=== PATIENT | male | born 1980 | race Caucasian/White ===

== ENCOUNTER 2018-11-23 14:10 | Emergency (ER) | payer SELFPAY ==
[2018-11-23 14:26] VITALS: BP 144/95
== END 2018-11-23 14:45 | disposition left against medical advice (07) ==
LOC: ER 14:10
DX: Z53.21 Procedure and treatment not carried out due to patient leaving prior to being seen by health care provider (principal)

== ENCOUNTER 2019-02-02 11:49 | Emergency (ER) | payer OTHER ==
[2019-02-02 11:54] VITALS: BP 178/103
--- NOTE | 2019-02-02 12:04 | ER Document Report ---
ED Medical Screen (RME) - General Chief Complaint: Hand Swelling Stated Complaint: HAND SWELLING/PAIN Primary Care Provider: ISIDRA BURCIAGA [Primary Care Provider] - Follow up as needed Information source: Patient Notes: Patient presents with left hand pain and swelling for the past 8 days. Patient saw his doctor 3 days ago and was diagnosed with gout and placed on Motrin and Augmentin. Patient denies any injury. Patient denies any fever. Patient denies any improvement with the Augmentin and Motrin. I have greeted and performed a rapid initial assessment of this patient. A comprehensive ED assessment and evaluation of the patient, analysis of test results and completion of the medical decision making process will be conducted by additional ED providers. TRAVEL OUTSIDE OF THE [place] IN LAST 30 DAYS: No - Related Data Allergies/Adverse Reactions: No Known Allergies Allergy (Verified 02/02/19 11:58) Past Medical History - Social History Chew tobacco use (# tins/day): No Frequency of alcohol use: None Drug Abuse: None Physical Exam - Vital signs Vitals: Temp Pulse Resp BP Pulse Ox 97.7 F 95 18 178/103 H 97 02/02/19 11:53 02/02/19 11:53 02/02/19 11:53 02/02/19 11:53 02/02/19 11:53 - General General appearance: Appears well, Alert Notes: Left hand pain and swelling that seems primarily around the left thumb. Patient with small erythematous area to the left thumb. Patient denies any trauma, puncture wound or insect bites. Course - Vital Signs Vital signs: Temp Pulse Resp BP Pulse Ox 97.7 F 95 18 178/103 H 97 02/02/19 11:53 02/02/19 11:53 02/02/19 11:53 02/02/19 11:53 02/02/19 11:53 Doctor's Discharge - Discharge Referrals: ISIDRA BURCIAGA [Primary Care Provider] - Follow up as needed
--- NOTE | 2019-02-02 12:24 | RADIOLOGY REPORT (SQ) ---
EXAM DESCRIPTION: HAND LEFT 3 VIEWS COMPLETED DATE/TIME: 02/02/2019 12:17 pm REASON FOR STUDY: L hand pain, swelling COMPARISON: None. EXAM PARAMETERS: NUMBER OF VIEWS: Three views. TECHNIQUE: AP, lateral and oblique radiographic images acquired of the left hand. LIMITATIONS: None. FINDINGS: MINERALIZATION: Normal. BONES: No acute fracture or dislocation. No worrisome bone lesions. JOINTS: No effusions. SOFT TISSUES: No soft tissue swelling. No foreign body. OTHER: No other significant finding. IMPRESSION: NEGATIVE STUDY OF THE LEFT HAND. NO RADIOGRAPHIC EVIDENCE OF ACUTE INJURY. TECHNICAL DOCUMENTATION: JOB ID: [id number]- All Rights Reserved Reading location - IP/workstation name: [email or web address]
[2019-02-02 12:31] LABS: ABSOLUTE EOSINOPHILS # (AUTO) 0.3 10^3/uL (0.0-0.6); ABSOLUTE LYMPHOCYTES (AUTO) 2.3 10^3/uL (0.5-4.7); ABSOLUTE MONOCYTES (AUTO) 0.6 10^3/uL (0.1-1.4); ABSOLUTE NEUT (AUTO) 6.4 10^3/uL (1.7-8.2); BASOPHILS % (AUTO) 0.4 % (0-2); EOSINOPHILS % (AUTO) 3.1 % (0-6); HEMATOCRIT 44.6 % (37.9-51.0); HEMOGLOBIN 15.5 g/dL (13.5-17.0); LYMPHOCYTES % (AUTO) 23.4 % (13-45); MEAN CORPUSCULAR HGB CONC 34.8 g/dL (32.0-36.0); MEAN CORPUSCULAR VOLUME 92 fl (80-97); MONOCYTES % (AUTO) 6.5 % (3-13); PLATELET COUNT 306 10^3/uL (150-450); RED BLOOD COUNT 4.86 10^6/uL (4.35-5.55); SEGMENTED NEUTROPHILS % (AUTO) 66.6 % (42-78); TOTAL CELLS COUNTED % (AUTO) 100 %; WHITE BLOOD COUNT 9.7 10^3/uL (4.0-10.5)
[2019-02-02] MEDS ORDERED: OXYCODONE HCL IR 5 MG TABLET PO ONE (12:43)
[2019-02-02] MEDS ORDERED: KETOROLAC TROMETHAMINE 60 MG/2 ML SDV IM ONE (12:43)
--- NOTE | 2019-02-02 12:47 | ER Document Report ---
ED General - General Chief Complaint: Hand Swelling Stated Complaint: HAND SWELLING/PAIN Time Seen by Provider: 02/02/19 12:31 Primary Care Provider: ISIDRA BURCIAGA [NO LOCAL MD] - Follow up as needed TRAVEL OUTSIDE OF THE [place] IN LAST 30 DAYS: No - HPI Notes: Patient is a 38-year-old male with a history of hypertension who presents complaining of left wrist and left lateral dorsal hand swelling over the past 8 days. He was evaluated a few days ago by a family provider and was given Augmentin and told to take Motrin for possible infection versus gout. Patient states that he has not had any improvement with the medicines. He has noticed some redness and warmth associated as well. The pain does not radiate. He does have pain with movement of his hand but primarily to the posterior side. 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 Denies any injury. Denies drug allergies. Denies any headache, fever, neck pain, URI, sore throat, chest pain, palpitations, syncope, cough, shortness of breath, wheeze, dyspnea, abdominal pain, nausea/vomiting/diarrhea, urinary retention, dysuria, hematuria, loss of control of bowel or bladder, numbness/tingling, muscle paralysis. - Related Data Allergies/Adverse Reactions: No Known Allergies Allergy (Verified 02/02/19 11:58) Past Medical History - General Information source: Patient - Social History Smoking Status: Never Smoker Chew tobacco use (# tins/day): No Frequency of alcohol use: None Drug Abuse: None Family History: Reviewed & Not Pertinent Patient has suicidal ideation: No Patient has homicidal ideation: No - Past Medical History Cardiac Medical History: Reports: Hx Hypertension Review of Systems - Review of Systems -: Yes All other systems reviewed and negative Physical Exam - Vital signs Vitals: Temp Pulse Resp BP Pulse Ox 97.7 F 95 18 178/103 H 97 02/02/19 11:53 02/02/19 11:53 02/02/19 11:53 02/02/19 11:53 02/02/19 11:53 - Notes Notes: PHYSICAL EXAMINATION: GENERAL: Well-appearing, well-nourished and in no acute distress. HEAD: Atraumatic, normocephalic. NECK: Normal range of motion, supple without lymphadenopathy. No midline tenderness. LUNGS: Breath sounds clear to auscultation bilaterally and equal. No wheezes rales or rhonchi. HEART: Regular rate and rhythm without murmurs, rubs, gallops. Musculoskeletal: Lt hand/wrist: + trace to 1+ pitting edema posterior lateral hand and anterior wrist with mild eyrthema/warmth associated and tenderness to these areas to palp. No ecchymosis or deformity. N/V intact distal. FROM to passive/active at the wrist. Strength 4+/5 to head of data. No other bony tenderness. Extremities: No cyanosis, clubbing, or edema b/l. Peripheral pulses 2+. Capillary refill less than 3 seconds. NEUROLOGICAL: Normal speech, normal gait. Normal sensory, motor exams otherwise unremarkable PSYCH: Normal mood, normal affect. SKIN: see above. No rash Course - Re-evaluation Re-evalutation: 02/02/19 14:09 Patient is an afebrile, well-hydrated, 38-year-old male who presents to the ED with left wrist/hand pain, ?gout vs infection. Vitals are acceptable without any significant tachycardia, tachypnea, or hypoxia. PE is otherwise unremarkable for any neurovascular compromise, obvious tendon/ligament rupture, obvious fracture/dislocation, septic joint. X-ray was unremarkable for any acute pathology. Pt given toradol/oxy IR. Patient is nontoxic-appearing. We do have a Venous doppler ordered to r/o DVT, but pt is insistent that he has to leave AMA. Risks/benefits reviewed of leaving prior to completion of evaluation. Risks include worsening condition, injury, and possible . Pt aware and would still like to be discharged. I will switch him from the augmentin he was on to cleocin and send him on indomethacin. Conservative measures otherwise for symptoms. Recheck with your PCM in 3-5 days. Consider consult orthopedics. Return to the ED with any worsening/concerning symptoms otherwise as reviewed in discharge. Patient is in agreement. Reviewed with Dr. العراقي who is in agreement with dispo/plan. - Vital Signs Vital signs: Temp Pulse Resp BP Pulse Ox 97.7 F 95 18 178/103 H 97 02/02/19 11:53 02/02/19 11:53 02/02/19 11:53 02/02/19 11:53 02/02/19 11:53 - Laboratory Result Diagrams: 02/02/19 12:11 02/02/19 12:11 Laboratory results interpreted by me: 02/02/19 02/02/19 12:11 12:11 ESR 41 H Chloride 108 H Glucose 134 H C-Reactive Protein 28.3 H Discharge - Discharge Clinical Impression: Left hand pain Condition: Stable Disposition: AGAINST MEDICAL ADVICE Additional Instructions: You have elected to leave AGAINST MEDICAL ADVICE. As such, things can worsen an injury, debilitation, and/or as we do not have a complete work-up fulfilled. Do not hesitate to return for any other reasons as reviewed. Rest, Ice, Compression, Elevation Light stretches daily Strength exercises as able Moist heat and massage may help F/u with your PCP in 2-3 days for a recheck Consider consult(s) with Orthopedics/physical therapy for ongoing/worsening symptoms Return to the ED with any worsening symptoms and/or development of fever, headache, chest pain, palpitations, syncope, shortness of breath, trouble breathing, abdominal pain, n/v/d, muscle weakness/paralysis, numbness/tingling, swelling, redness, or other worsening symptoms that are concerning to you. Prescriptions: Clindamycin HCl [Cleocin 300 mg Capsule] 300 mg PO TID #30 capsule Indomethacin [Indocin 50 mg Capsule] 50 mg PO TID #15 capsule Forms: Elevated Blood Pressure Referrals: HOLLY GUEVARA MD [NO LOCAL MD] - Follow up as needed
[2019-02-02 12:49] LABS: ANION GAP 11 (5-19); BLOOD UREA NITROGEN 13 mg/dL (7-20); C-REACTIVE PROTEIN 28.3 mg/L (<10.0); CALCIUM 9.8 mg/dL (8.4-10.2); CARBON DIOXIDE 22 mmol/L (22-30); CHLORIDE 108 mmol/L (98-107); GLUCOSE 134 mg/dL (75-110); POTASSIUM 4.2 mmol/L (3.6-5.0); URIC ACID 4.9 mg/dL (3.5-8.5)
[2019-02-02 13:06] LABS: ERYTHROCYTE SEDIMENTATION RATE 41 mm/hr (0-15)
== END 2019-02-02 14:36 | disposition left against medical advice (07) ==
LOC: ER 11:49
DX: M79.642 Pain in left hand (principal); M79.89 Other specified soft tissue disorders; I10 Essential (primary) hypertension
CPT/HCPCS: 36415; 84550; 85025; 85652; 86140; 80048; 73130; J1885; 96372; 99283

== ENCOUNTER 2019-02-04 14:09 | Emergency (ER) | payer OTHER ==
[2019-02-04] MEDS ORDERED: ONDANSETRON HCL INJ/PF 4 MG/2 ML SDV ONE (14:19)
[2019-02-04] MEDS ORDERED: ONDANSETRON HCL INJ/PF 4 MG/2 ML SDV IV ONE (14:47)
--- NOTE | 2019-02-04 14:47 | ER Document Report ---
ED General - General Stated Complaint: BLOOD PRESSURE ISSUES Time Seen by Provider: 02/04/19 14:43 Primary Care Provider: ADRIANA BRADLEY DO [Primary Care Provider] - Follow up as needed Notes: Patient was in MRI here at this hospital getting an MRI of his left wrist. He had finished getting the noncontrasted study and was injected with gadolinium and almost immediately he began to feel hot and sweaty and became nauseated and vomited up all of his food and had at lunch today. He said the room got very bright and he felt weak. Never developed any rash. Never had any difficulty breathing or swallowing. And, at this time, patient says he is back to his usual, normal self and feels fine. Patient's been having swelling of his left wrist for the past 10 days. He was seen here on Monday for this problem and thought he might have gout and was put on Indocin. 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 Patient has hypertension for which he is on medications. Has not had any injury to his left wrist. Has not had any cuts or scrapes or puncture wounds of any sort to the left hand. Patient has a history of anxiety. TRAVEL OUTSIDE OF THE [place] IN LAST 30 DAYS: No - Related Data Allergies/Adverse Reactions: Gadolinium-Containing Contrast Medi Adverse Reaction (Severe, Verified 02/04/19 14:30) Hypotension Past Medical History - Social History Smoking Status: Unknown if Ever Smoked Family History: Reviewed & Not Pertinent - Past Medical History Cardiac Medical History: Reports: Hx Hypertension Review of Systems - Review of Systems Notes: CONSTITUTIONAL : Denies fever. CARDIOVASCULAR: Denies chest pain. RESPIRATORY: Denies cough, chest congestion, or shortness of breath. GASTROINTESTINAL: Denies abdominal pain but nauseated and vomited a large amount. No diarrhea. GENITOURINARY: Denies difficulty or painful urinating, urinary frequency, blood in urine. Extremities: Painful swelling of left wrist for about 10 days. Recalls no injury. Physical Exam - Vital signs Vitals: Resp Pulse Ox 17 86 L 02/04/19 14:15 02/04/19 14:15 Interpretation: Normal Notes: PHYSICAL EXAMINATION: GENERAL: Well-appearing, in no acute distress. Patient says he feels back to his normal self at this time. HEAD: Atraumatic, normocephalic. EYES: Pupils equal round and reactive to light, extraocular movements intact. LUNGS: Breath sounds clear and equal bilaterally. No wheezes. HEART: Regular rate and rhythm without murmurs. ABDOMEN: Soft, nontender. No guarding or rebound. No masses. BACK: No tenderness throughout entire back. EXTREMITIES: Patient has diffuse swelling of his dorsal left wrist which is tender to touch and painful to manipulate. Minimal warmth to the touch, but not significantly erythematous. No fluctuance felt. Otherwise, normal range of motion without pain. NEUROLOGICAL: Normal speech, normal gait. Normal sensory, motor, and reflex exams. Awake, alert, and oriented x3. Cranial nerves normal. PSYCH: Normal mood, normal affect. SKIN: Warm, dry, no rashes. No hives Course - Re-evaluation Re-evalutation: 02/04/19 18:44 Patient said he felt back to his normal self. His lungs are clear without any wheezes. His abdomen is soft and nontender. Labs provided to patient and his spouse. Advised him to follow-up with Dr. Bradley as instructed. After patient had been discharged, I was able to contact Dr. Bradley and went over the results of the MRI. Dr. Bradley is fully aware of the findings on the MRI and will take care of the patient for that problem. - Vital Signs Vital signs: Temp Pulse Resp BP Pulse Ox 15 122/78 100 02/04/19 15:11 02/04/19 15:11 02/04/19 15:11 Discharge - Discharge Clinical Impression: Medication side effect, Vomiting, Pain and swelling of left wrist Condition: Stable Disposition: HOME, SELF-CARE Additional Instructions: Medication Side Effects Your unpleasant symptoms are due to a drug you're taking. These symptoms are a common side effect of the medicine. It's not a true allergy. We stop any unnecessary drugs when bothersome side effects occur. Sometimes we'll substitute a different type of drug. In other cases, we must continue the drug. If so, we try to find a way to decrease the side effects. Many side effects decrease with time. Call us if the symptoms don't go away. NORMAL EXAM AND WORKUP: At this time, your examination and workup show no significant abnormality. No significant abnormal physical findings were noted. All laboratory, EKG, and imaging (x-ray, CT scans, ultrasound) studies that were ordered show no significant abnormality. Although your examination and all studies that were ordered showed no significant abnormal finding, there are no examinations and no studies that are 100% accurate. There is always the possibility that some abnormality could exist and not be detected with physical examination or within the limits and capabilities of laboratory and other studies. You should return or follow up as you were instructed on your visit today for further evaluation if your symptoms do not resolve. FOLLOW-UP CARE: If you have been referred to a physician for follow-up care, call the physicians office for an appointment as you were instructed or within the next two days. If you experience worsening or a significant change in your symptoms, notify the physician immediately or return to the Emergency Department at any time for re-evaluation. Follow-up with your orthopedic surgeon, Dr. Bradley, for further evaluation of your wrist pain and swelling and the results of your studies. The MRI study has not been read at this time of your discharge. Referrals: ADRIANA BRADLEY, DO [Primary Care Provider] - Follow up as needed
[2019-02-04 15:32] VITALS: BP 122/78
== END 2019-02-04 15:32 | disposition home or self-care (01) ==
LOC: ER 14:09
DX: R11.2 Nausea with vomiting, unspecified (principal); T50.8X5A Adverse effect of diagnostic agents, initial encounter; Y92.238 Other place in hospital as the place of occurrence of the external cause; M25.532 Pain in left wrist; M25.432 Effusion, left wrist; I10 Essential (primary) hypertension
CPT/HCPCS: 99283; 96374; J2405

== ENCOUNTER → 2019-02-04 | Outpatient (CLI) | payer OTHER ==
[2019-02-04 12:56] LABS: ABSOLUTE BASOPHILS # (AUTO) 0.1 10^3/uL (0.0-0.2); ABSOLUTE EOSINOPHILS # (AUTO) 0.2 10^3/uL (0.0-0.6); ABSOLUTE LYMPHOCYTES (AUTO) 2.6 10^3/uL (0.5-4.7); ABSOLUTE MONOCYTES (AUTO) 0.4 10^3/uL (0.1-1.4); ABSOLUTE NEUT (AUTO) 5.1 10^3/uL (1.7-8.2); BASOPHILS % (AUTO) 0.8 % (0-2); EOSINOPHILS % (AUTO) 1.9 % (0-6); HEMATOCRIT 40.1 % (37.9-51.0); HEMOGLOBIN 13.8 g/dL (13.5-17.0); LYMPHOCYTES % (AUTO) 31.3 % (13-45); MEAN CORPUSCULAR HGB CONC 34.5 g/dL (32.0-36.0); MEAN CORPUSCULAR VOLUME 90 fl (80-97); MONOCYTES % (AUTO) 4.8 % (3-13); PLATELET COUNT 282 10^3/uL (150-450); RED BLOOD COUNT 4.46 10^6/uL (4.35-5.55); RED CELL DISTRIBUTION WIDTH 13.1 % (11.5-14.0); SEGMENTED NEUTROPHILS % (AUTO) 61.2 % (42-78); TOTAL CELLS COUNTED % (AUTO) 100 %; WHITE BLOOD COUNT 8.3 10^3/uL (4.0-10.5)
[2019-02-04 13:18] LABS: C-REACTIVE PROTEIN 25.7 mg/L (<10.0); URIC ACID 5.2 mg/dL (3.5-8.5)
[2019-02-04 13:32] LABS: ERYTHROCYTE SEDIMENTATION RATE 40 mm/hr (0-15)
--- NOTE | 2019-02-04 16:32 | RADIOLOGY REPORT (SQ) ---
EXAM DESCRIPTION: MRI LT UPPER EXTREMITY WITHOUT COMPLETED DATE/TIME: 02/04/2019 2:31 pm REASON FOR STUDY: M79.642 PAIN IN LEFT HAND M79.642 PAIN IN LEFT HAND COMPARISON: None. TECHNIQUE: Left wrist images acquired and stored on PACS. Multiplanar images include fat sensitive sequences as T1, fluid sensitive sequences as FST2/STIR, cartilage sensitive sequences as FSPD, gradi ent echo sequences. LIMITATIONS: Inhomogeneous fat saturation. FINDINGS: BONE MARROW: No marrow edema identified. No large osteophytes. CARPAL ALIGNMENT AND ARTICULATION: Normal congruity of sigmoid notch at level of distal RUJ without p ositive or negative ulnar variance. Normal capitolunate angle. No widening of scapholunate articulati on. EFFUSION: None noted. No loose bodies. SCAPHOLUNATE LIGAMENT: Intact without tear. LUNATE-TRIQUETRAL LIGAMENT: Intact without tear. TFC COMPLEX: Radial and ulnar attachments normal. Meniscus intact. Extensor carpi ulnaris tendon norm al without tendinopathy. EXTRINSIC LIGAMENTS AND DISTAL RADIO-ULNAR JOINT: Dorsal and volar distal RUJ intact without subluxat ion of the distal ulna. 1-6 EXTENSOR COMPARTMENTS: Moderate tenosynovitis of the abductor pollicis longus and extensor pollic is brevis at the level of the wrist suggesting de Quervain's Syndrome. Remaining extensor compartmen ts show minimal edema in the extensor carpi the radialis tendon sheath. CARPAL TUNNEL AND MEDIAN NERVE: Normal volume and morphology of the carpal tunnel proximally at the l evel of the radiocarpal joint and distally at the hook of the hamate. No thickening or signal alterat ion of the median nerve. OTHER: Extensive edema is noted in the dorsal subcutaneous soft tissues of the dorsum of the hand wit h some involvement of the extensor digitorum tendons of the 2nd through 5th digits at the level of th e MCP joints. IMPRESSION: Moderate tenosynovitis of the abductor pollicis longus and extensor pollicis brevis at t he level of the wrist suggesting de Quervain's Syndrome. Remaining extensor compartments show minima l edema in the extensor carpi the radialis tendon sheath. Extensive edema is noted in the dorsal subc utaneous soft tissues of the dorsum of the hand with some involvement of the extensor digitorum tendo ns of the 2nd through 5th digits at the level of the MCP joints. No marrow edema identified. Infection should be excluded on clinical grounds. TECHNICAL DOCUMENTATION: JOB ID: [id number] 2010 [employer]- All Rights Reserved Reading location - IP/workstation name: [email or web address]
== END ==
LOC: RAD 12:22
PROVIDERS: ATTEND Orthopaedic Surgery
DX: M79.642 Pain in left hand (principal)
CPT/HCPCS: 36415; 82565; 84550; 85025; 85652; 86038; 86140; 86200; 86430; 86617; 86618